=== PATIENT | male | born 1975 ===

== ENCOUNTER → 2017-03-20 | Emergency (ER) | payer OTHER ==
[~2017-03-20] VITALS: Ht 175.3 cm; Wt 61.2 kg
== END | disposition left against medical advice (07) ==
LOC: ER 20:06
DX: Z53.20 Procedure and treatment not carried out because of patient's decision for unspecified reasons (principal)

== ENCOUNTER → 2017-03-21 | Emergency (ER) | payer OTHER ==
[~2017-03-21] VITALS: Ht 175.3 cm; Wt 61.2 kg
== END | disposition home or self-care (01) ==
LOC: ER 00:05
DX: F32.9 Major depressive disorder, single episode, unspecified (principal)